=== PATIENT | female | born 1935 | race American Indian/Alaskan Native ===

== ENCOUNTER 2018-04-14 16:19 | Emergency (ER) | payer MEDICAID ==
[~2018-04-14] VITALS: Ht 149.9 cm; Wt 66.0 kg
[~2018-04-14 16:19] MED LIST: ASPI-1079 PO; LEVO25TA7 PO
[2018-04-14] MEDS ORDERED: HYDR25TA MT (16:50)
[2018-04-14] MEDS ORDERED: OMEP20TA2 MT (16:50)
[2018-04-14] MEDS ORDERED: [UNRECOGNIZED DRUG - OTHER] PO (16:52)
[2018-04-14] MEDS ORDERED: SODIUM CHLORIDE 0.9% 1,000 ML IV ONE (17:15)
[2018-04-14] MEDS ORDERED: ONDANSETRON HCL 4MG/2ML VIAL IV ONE (17:15)
[2018-04-14] MEDS ORDERED: ACETAMINOPHEN 325MG TABLET PO ONE ×2 (17:15→19:45)
[2018-04-14] MEDS ORDERED: MECLIZINE 25MG TABLET PO ONE (17:30)
[2018-04-14 17:34] LABS: CLARITY URINE CLEAR (CLEAR); COLOR URINE YELLOW (YELLOW); KETONES URINE NEGATIVE (NEGATIVE); LEUKOCYTE ESTERASE URINE TRACE (NEGATIVE); NITRITE URINE POSITIVE (NEGATIVE); OCCULT BLOOD URINE TRACE (NEGATIVE); PH URINE 6.5 (4.5-8.0); PROTEIN URINE NEGATIVE (NEGATIVE); SPECIFIC GRAVITY URINE 1.007 (1.005-1.030)
[2018-04-14 17:43] LABS: BASOPHILS % 0.4 % (0.0-2.0); HEMATOCRIT. 31.5 % (36.0-48.0); LYMPHOCYTES % 35.4 % (20.0-50.0); MEAN CORPUSCULAR VOLUME 97.5 fL (81.0-99.0); MEAN PLATELET VOLUME 6.3 fl (7.4-10.4); MONOCYTES % 13.4 % (2.0-8.0); NEUTROPHILS % 47.8 % (40.0-76.0); PLATELET 96 x1000/uL (130-400); RED BLOOD CELL COUNT 3.24 mill/uL (4.2-5.4); RED CELL DISTRIBUTION WIDTH 14.8 % (11.6-14.6)
[2018-04-14 17:46] LABS: CHLORIDE 97 mEq/L (98-107)
[2018-04-14] MEDS ORDERED: AMLODIPINE 10MG TABLET PO ONE (19:45)
[2018-04-14 20:45] VITALS: BP 174/80
== END 2018-04-14 21:07 | disposition home or self-care (01) ==
LOC: ER 16:19
DX: N39.0 Urinary tract infection, site not specified (principal); I10 Essential (primary) hypertension; R42 Dizziness and giddiness
CPT/HCPCS: 36415; 71045; 80053; 81003; 85025; 93005; 96361; 96374; 99285; J2405; J7030; Z7610; 96360; J8597

== ENCOUNTER 2018-12-08 10:15 | Emergency (ER) | payer MEDICARE, OTHER ==
[~2018-12-08] VITALS: Ht 152.4 cm; Wt 64.0 kg
[~2018-12-08 10:15] MED LIST changes: -ASPI-1079 PO; +HYDR25TA MT; +OMEP20TA2 MT; +[UNRECOGNIZED DRUG - OTHER] PO
[2018-12-08] MEDS ORDERED: LOSA100T14 PO (10:32)
[2018-12-08] MEDS ORDERED: AMLO2.5T45 PO (10:32)
[2018-12-08] MEDS ORDERED: ONDANSETRON HCL 4MG/2ML INJ IV STA (11:05)
[2018-12-08] MEDS ORDERED: SODIUM CHLORIDE 0.9% 500 ML IV ONE (11:15)
[2018-12-08 11:29] LABS: BASOPHILS % 0.6 % (0.0-2.0); EOSINOPHILS % 2.8 % (0.0-5.0); HEMATOCRIT. 35.9 % (36.0-48.0); HEMOGLOBIN. 12.3 g/dL (12.0-16.0); LYMPHOCYTES % 31.2 % (20.0-50.0); MEAN CORPUSCULAR VOLUME 99.2 fL (81.0-99.0); MEAN PLATELET VOLUME 6.5 fl (7.4-10.4); MONOCYTES % 9.8 % (2.0-8.0); NEUTROPHILS % 55.6 % (40.0-76.0); PLATELET 89 x1000/uL (130-400); RED BLOOD CELL COUNT 3.62 mill/uL (4.2-5.4); RED CELL DISTRIBUTION WIDTH 14.1 % (11.6-14.6)
[2018-12-08 11:34] LABS: CLARITY URINE CLEAR (CLEAR); COLOR URINE YELLOW (YELLOW); KETONES URINE NEGATIVE (NEGATIVE); LEUKOCYTE ESTERASE URINE 2+ (NEGATIVE); NITRITE URINE NEGATIVE (NEGATIVE); OCCULT BLOOD URINE TRACE (NEGATIVE); PH URINE 6.5 (4.5-8.0); PROTEIN URINE NEGATIVE (NEGATIVE); SPECIFIC GRAVITY URINE 1.005 (1.005-1.030)
[2018-12-08 11:35] LABS: CHLORIDE 103 mEq/L (98-107)
[2018-12-08 11:36] LABS: INR 1.1; PROTHROMBIN TIME 10.9 sec (9.1-11.1)
[2018-12-08] MEDS ORDERED: IOHEXOL-300 100 ML BOTTLE ONE (12:57)
[2018-12-08 13:30] VITALS: BP 180/65
== END 2018-12-08 14:03 | disposition home or self-care (01) ==
LOC: ER 10:15
DX: N39.0 Urinary tract infection, site not specified (principal); K74.60 Unspecified cirrhosis of liver; D69.6 Thrombocytopenia, unspecified; D72.819 Decreased white blood cell count, unspecified; I10 Essential (primary) hypertension; E03.9 Hypothyroidism, unspecified; D64.9 Anemia, unspecified; Z79.899 Other long term (current) drug therapy
CPT/HCPCS: 36415; 74177; 80053; 81003; 83690; 85025; 85610; 87077; 87086; 87186; 93005; 96361; 96374; 99284; J2405; J7040; Q9967

== ENCOUNTER 2019-03-18 12:18 | Inpatient (IN) | payer MEDICARE, OTHER ==
[~2019-03-18] VITALS: Ht 152.4 cm; Wt 44.9 kg
[~2019-03-18 12:18] MED LIST changes: +AMLO2.5T45 PO; +LOSA100T32 PO
[2019-03-18] MEDS ORDERED: ACETAMINOPHEN 325MG TABLET PO STA (14:30)
[2019-03-18] MEDS ORDERED: SODIUM CHLORIDE 0.9% 1000ML BAG (SEPSIS BOLUS) IV ONE (14:30)
[2019-03-18 15:16] LABS: HEMATOCRIT. 31.5 % (36.0-48.0); MEAN CORPUSCULAR HEMOGLOBIN 34.5 pg (28.0-32.0); MEAN CORPUSCULAR VOLUME 99.1 fL (81.0-99.0); MEAN PLATELET VOLUME 6.9 fl (7.4-10.4); PLATELET 56 x1000/uL (130-400); RED BLOOD CELL COUNT 3.18 mill/uL (4.2-5.4); RED CELL DISTRIBUTION WIDTH 14.2 % (11.6-14.6)
[2019-03-18 15:19] LABS: CHLORIDE 96 mEq/L (98-107)
[2019-03-18 15:39] LABS: INR 1.1; PROTHROMBIN TIME 11.2 sec (9.6-11.0)
[2019-03-18 15:46] LABS: PLATELET ESTIMATE DECREASED
[2019-03-18 16:20] LABS: CLARITY URINE CLEAR (CLEAR); COLOR URINE YELLOW (YELLOW); KETONES URINE NEGATIVE (NEGATIVE); LEUKOCYTE ESTERASE URINE 1+ (NEGATIVE); NITRITE URINE NEGATIVE (NEGATIVE); OCCULT BLOOD URINE 1+ (NEGATIVE); PH URINE 6.5 (4.5-8.0); PROTEIN URINE NEGATIVE (NEGATIVE); SPECIFIC GRAVITY URINE 1.011 (1.005-1.030)
[2019-03-18] MEDS ORDERED: CEFTRIAXONE 1 G PREMIX 50 ML IV ONE (16:45)
[2019-03-18] MEDS ORDERED: ONDANSETRON HCL 4MG/2ML INJ IV PRN (18:45)
[2019-03-18] MEDS ORDERED: CLONIDINE 0.1MG TABLET PO PRN (18:45)
[2019-03-18] MEDS ORDERED: ACETAMINOPHEN 650MG/20.3ML UDC PO PRN (18:45)
[2019-03-18 20:00] VITALS: BP 163/66
[2019-03-18] MEDS: SODIUM CHLORIDE 0.9% 1,000 ML IV SCH (21:15)
[2019-03-18] MEDS ORDERED: DOCUSATE SODIUM 250MG CAPSULE PO PRN (22:15)
[2019-03-18] MEDS ORDERED: POTASSIUM CHLORIDE 20MEQ TABLET SR PO NR (22:15)
[2019-03-19] VITALS: BP 115/45
[2019-03-19] MEDS ORDERED: LEVOFLOXACIN 500MG PREMIX 100 ML IV NR
[2019-03-19 04:00] VITALS: BP 118/49
[2019-03-19 07:04] LABS: HEMATOCRIT. 28.1 % (36.0-48.0); MEAN CORPUSCULAR HEMOGLOBIN 35.1 pg (28.0-32.0); MEAN CORPUSCULAR VOLUME 98.5 fL (81.0-99.0); MEAN PLATELET VOLUME 6.5 fl (7.4-10.4); RED BLOOD CELL COUNT 2.85 mill/uL (4.2-5.4); RED CELL DISTRIBUTION WIDTH 14.5 % (11.6-14.6)
[2019-03-19 07:06] LABS: CHLORIDE 106 mEq/L (98-107)
[2019-03-19 07:18] LABS: PLATELET 44 x1000/uL (130-400)
[2019-03-19 08:00] VITALS: BP 151/61
[2019-03-19] MEDS ORDERED: AMLODIPINE 10MG TABLET PO SCH (09:00)
[2019-03-19] MEDS: SODIUM CHLORIDE 0.9% 1,000 ML IV SCH (09:20)
[2019-03-19 12:00] VITALS: BP 130/54
[2019-03-19 12:03] LABS: PLATELET ESTIMATE MARKEDLY DECREASED
[2019-03-19 13:53] LABS: HEPATITIS B SURFACE ANTIGEN NEGATIVE
[2019-03-19 14:23] LABS: HEPATITIS A AB IGM NEGATIVE (NEGATIVE)
[2019-03-19] MEDS ORDERED: CALC-30 MT (15:43)
[2019-03-19] MEDS ORDERED: LOSA25TA26 MT (15:43)
[2019-03-19] MEDS ORDERED: AMLO2.5T2 PO (15:43)
[2019-03-19 16:00] VITALS: BP 144/60
[2019-03-19] MEDS ORDERED: CEFTRIAXONE 1 G PREMIX 50 ML IV SCH (17:00)
[2019-03-19] MEDS ORDERED: LEVOFLOXACIN 250MG PREMIX 50 ML IV SCH (23:00)
== END 2019-03-19 20:28 | disposition short-term general hospital (02) | DRG 463 ==
LOC: ER 12:18 → 6EST 16:51 → EDBEDREQ 17:25 → EDBEDREQSVC 17:25 → EDBEDREQ 17:26 → EDBEDREQTM 17:26 → ENRESERV 17:27
PROVIDERS: ADMIT Internal Medicine; ATTEND Internal Medicine
DX: N30.90 Cystitis, unspecified without hematuria (principal); J84.9 Interstitial pulmonary disease, unspecified; D61.818 Other pancytopenia; E87.8 Other disorders of electrolyte and fluid balance, not elsewhere classified; E87.1 Hypo-osmolality and hyponatremia; E44.1 Mild protein-calorie malnutrition; M48.54XA Collapsed vertebra, not elsewhere classified, thoracic region, initial encounter for fracture; E87.6 Hypokalemia; K74.60 Unspecified cirrhosis of liver; E78.00 Pure hypercholesterolemia, unspecified; I10 Essential (primary) hypertension; E78.5 Hyperlipidemia, unspecified; E03.9 Hypothyroidism, unspecified; Z88.0 Allergy status to penicillin
CPT/HCPCS: 36415; 71045; 74176; 80048; 83605; 86705; 86709; 86803; 87340; 87804; 93005; 93970; 97162; 99285; J0696; J1956; J7030

== ENCOUNTER 2019-07-01 14:11 | Emergency (ER) | payer MEDICARE, OTHER ==
[~2019-07-01] VITALS: Ht 152.4 cm; Wt 55.0 kg
[~2019-07-01 14:11] MED LIST changes: +AMLO2.5T2 PO; +CALC-30 MT; +LOSA25TA26 MT
[2019-07-01] MEDS ORDERED: LIDOCAINE 5% PATCH TOP STA (16:45)
[2019-07-01] MEDS ORDERED: ACETAMINOPHEN 325MG TABLET PO ONE (16:45)
[2019-07-01 21:59] VITALS: BP 181/61
== END 2019-07-01 22:01 | disposition home or self-care (01) ==
LOC: ER 14:11
DX: S22.089A Unspecified fracture of T11-T12 vertebra, initial encounter for closed fracture (principal); I10 Essential (primary) hypertension; E78.5 Hyperlipidemia, unspecified; E78.00 Pure hypercholesterolemia, unspecified; Z79.899 Other long term (current) drug therapy; Z88.0 Allergy status to penicillin; W18.2XXA Fall in (into) shower or empty bathtub, initial encounter; Y93.89 Activity, other specified; Y92.89 Other specified places as the place of occurrence of the external cause; Y99.8 Other external cause status
CPT/HCPCS: 72070; 72128; 99284

== ENCOUNTER 2021-12-12 13:49 | Emergency (ER) | payer MEDICARE, OTHER ==
[~2021-12-12] VITALS: Ht 152.4 cm; Wt 66.0 kg
[~2021-12-12 13:49] MED LIST changes: +CALC-1249 MT; -CALC-30 MT
[2021-12-12] MEDS ORDERED: SODIUM CHLORIDE 0.9% 1,000 ML IV ONE (18:45)
[2021-12-12] MEDS ORDERED: LOPERAMIDE HCL 2MG CAPSULE PO ONE (18:45)
[2021-12-12 19:33] LABS: BASOPHILS % 0.2 % (0.0-2.0); EOSINOPHILS % 1.5 % (0.0-5.0); HEMATOCRIT. 30.3 % (36.0-48.0); HEMOGLOBIN. 10.5 g/dL (12.0-16.0); LYMPHOCYTES % 17.9 % (20.0-50.0); MEAN CORPUSCULAR HEMOGLOBIN 34.5 pg (28.0-32.0); MEAN CORPUSCULAR VOLUME 99.6 fL (81.0-99.0); MEAN PLATELET VOLUME 7.6 fl (7.4-10.4); MONOCYTES % 12.3 % (2.0-8.0); NEUTROPHILS % 68.1 % (40.0-76.0); PLATELET 68 x1000/uL (130-400); RED BLOOD CELL COUNT 3.04 mill/uL (4.2-5.4); RED CELL DISTRIBUTION WIDTH 15.1 % (11.6-14.6)
[2021-12-12 19:43] LABS: CHLORIDE 112 mEq/L (98-107)
[2021-12-12 20:00] VITALS: BP 195/69
[2021-12-12] MEDS ORDERED: LOPE2CAP PO (20:31)
== END 2021-12-12 21:05 | disposition home or self-care (01) ==
LOC: ER 13:49
DX: R19.7 Diarrhea, unspecified (principal); I10 Essential (primary) hypertension; E78.00 Pure hypercholesterolemia, unspecified; E03.9 Hypothyroidism, unspecified; Z88.0 Allergy status to penicillin
CPT/HCPCS: 36415; 71045; 80053; 85025; 96360; 99284; J7030

== ENCOUNTER 2022-07-16 10:54 | Emergency (ER) | payer MEDICARE, OTHER ==
[~2022-07-16] VITALS: Ht 152.4 cm; Wt 59.0 kg
[~2022-07-16 10:54] MED LIST changes: +LOPE2CAP PO; -OMEP20TA2 MT; +OMEP20TA23 MT
[2022-07-16] MEDS ORDERED: ONDANSETRON HCL 4MG/2ML INJ IV STA (11:23)
[2022-07-16] MEDS ORDERED: HYDRALAZINE 20MG/ML VIAL IV ONE ×2 (11:30→21:00)
[2022-07-16 11:51] LABS: HEMATOCRIT. 29.9 % (36.0-48.0); HEMOGLOBIN. 10.4 g/dL (12.0-16.0); MEAN CORPUSCULAR HEMOGLOBIN 34.7 pg (28.0-32.0); MEAN CORPUSCULAR VOLUME 100.3 fL (81.0-99.0); MEAN PLATELET VOLUME 7.2 fl (7.4-10.4); PLATELET 58 x1000/uL (130-400); RED BLOOD CELL COUNT 2.99 mill/uL (4.2-5.4); RED CELL DISTRIBUTION WIDTH 15.4 % (11.6-14.6)
[2022-07-16 12:15] LABS: PLATELET ESTIMATE DECREASED
[2022-07-16 12:19] LABS: CHLORIDE 107 mEq/L (98-107)
[2022-07-16 20:46] VITALS: BP 172/61
== END 2022-07-16 21:31 | disposition short-term general hospital (02) ==
LOC: ER 10:54
DX: I16.1 Hypertensive emergency (principal); I10 Essential (primary) hypertension; E78.00 Pure hypercholesterolemia, unspecified; Z88.0 Allergy status to penicillin; Z79.899 Other long term (current) drug therapy; Z86.39 Personal history of other endocrine, nutritional and metabolic disease
CPT/HCPCS: 36415; 70450; 71045; 80053; 83880; 84484; 85025; 93005; 96374; 96375; 96376; 99291; J0360; J2405

== ENCOUNTER 2022-08-06 08:25 | Emergency (ER) | payer MEDICARE, OTHER ==
[~2022-08-06] VITALS: Ht 167.6 cm; Wt 77.0 kg
[2022-08-06 12:31] LABS: BASOPHILS % 0.3 % (0.0-2.0); EOSINOPHILS % 0.5 % (0.0-5.0); HEMATOCRIT. 33.4 % (36.0-48.0); HEMOGLOBIN. 11.4 g/dL (12.0-16.0); LYMPHOCYTES % 15.5 % (20.0-50.0); MEAN CORPUSCULAR HEMOGLOBIN 34.7 pg (28.0-32.0); MEAN CORPUSCULAR VOLUME 101.8 fL (81.0-99.0); MEAN PLATELET VOLUME 7.4 fl (7.4-10.4); MONOCYTES % 6.2 % (2.0-8.0); NEUTROPHILS % 77.5 % (40.0-76.0); PLATELET 71 x1000/uL (130-400); RED BLOOD CELL COUNT 3.28 mill/uL (4.2-5.4); RED CELL DISTRIBUTION WIDTH 15.4 % (11.6-14.6)
[2022-08-06 12:59] LABS: CLARITY URINE CLEAR (CLEAR); COLOR URINE YELLOW (YELLOW); KETONES URINE TRACE (NEGATIVE); LEUKOCYTE ESTERASE URINE 1+ (NEGATIVE); NITRITE URINE POSITIVE (NEGATIVE); OCCULT BLOOD URINE 1+ (NEGATIVE); PH URINE 6.5 (4.5-8.0); PROTEIN URINE 1+ (NEGATIVE); SPECIFIC GRAVITY URINE 1.008 (1.005-1.030)
[2022-08-06 13:37] LABS: CHLORIDE 104 mEq/L (98-107)
[2022-08-06] MEDS ORDERED: CEFTRIAXONE 1 G PREMIX 50 ML IV ONE (14:45)
[2022-08-06] MEDS ORDERED: NITR100C MT (17:27)
[2022-08-06] MEDS ORDERED: AMLODIPINE 5MG TABLET PO ONE (17:30)
[2022-08-06 18:05] VITALS: BP 176/71
== END 2022-08-06 18:07 | disposition home or self-care (01) ==
LOC: ER 08:25
DX: N39.0 Urinary tract infection, site not specified (principal); R42 Dizziness and giddiness; R11.10 Vomiting, unspecified; I10 Essential (primary) hypertension; Z79.899 Other long term (current) drug therapy
CPT/HCPCS: 36415; 71045; 80053; 81003; 83690; 84484; 85025; 93005; 96365; 99285; J0696

== ENCOUNTER 2022-12-11 12:25 | Emergency (ER) | payer MEDICARE, OTHER ==
[~2022-12-11] VITALS: Ht 160 cm; Wt 62.0 kg
[~2022-12-11 12:25] MED LIST changes: +NITR100C MT
[2022-12-11 17:21] VITALS: BP 142/75
== END 2022-12-11 17:30 | disposition home or self-care (01) ==
LOC: ER 14:23
DX: M25.511 Pain in right shoulder (principal); M85.80 Other specified disorders of bone density and structure, unspecified site; I10 Essential (primary) hypertension; E03.9 Hypothyroidism, unspecified; Z88.0 Allergy status to penicillin
CPT/HCPCS: 73030; 73060; 99284; A4565

== ENCOUNTER 2022-12-28 13:43 | Emergency (ER) | payer MEDICARE, OTHER ==
[~2022-12-28] VITALS: Ht 152.4 cm; Wt 60.0 kg
[2022-12-28] MEDS ORDERED: KETOROLAC 30MG/ML VIAL IV STA (18:43)
[2022-12-28 19:26] LABS: BASOPHILS % 0.2 % (0.0-2.0); EOSINOPHILS % 0.4 % (0.0-5.0); HEMATOCRIT. 25.8 % (36.0-48.0); HEMOGLOBIN. 8.8 g/dL (12.0-16.0); LYMPHOCYTES % 10.1 % (20.0-50.0); MEAN CORPUSCULAR HEMOGLOBIN 35.1 pg (28.0-32.0); MEAN CORPUSCULAR VOLUME 102.5 fL (81.0-99.0); MEAN PLATELET VOLUME 7.2 fl (7.4-10.4); NEUTROPHILS % 77.3 % (40.0-76.0); PLATELET 171 x1000/uL (130-400); RED BLOOD CELL COUNT 2.52 mill/uL (4.2-5.4); RED CELL DISTRIBUTION WIDTH 16.1 % (11.6-14.6)
[2022-12-28 19:34] LABS: INR 1.2; PARTIAL THROMBOPLASTIN TIME 26.5 sec (23.4-31.0); PROTHROMBIN TIME 12.3 sec (9.6-11.0)
[2022-12-28 19:39] LABS: CHLORIDE 102 mEq/L (98-107)
[2022-12-28] MEDS ORDERED: KETOROLAC 30MG/ML VIAL IV NR (20:30)
[2022-12-29 01:42] VITALS: BP 106/49
== END 2022-12-29 04:02 | disposition short-term general hospital (02) ==
LOC: ER 13:43
DX: L03.113 Cellulitis of right upper limb (principal); I10 Essential (primary) hypertension; Z88.0 Allergy status to penicillin; Z86.39 Personal history of other endocrine, nutritional and metabolic disease
CPT/HCPCS: 36415; 73030; 73200; 80053; 83605; 85025; 85610; 85651; 85730; 86850; 86900; 86901; 87040; 87077; 87186; 96374; 99291; J1885; Z7610

== ENCOUNTER 2023-01-15 05:56 | Emergency (ER) | payer MEDICARE, OTHER ==
[~2023-01-15] VITALS: Ht 165.1 cm; Wt 64.0 kg
[2023-01-15] MEDS ORDERED: OXYMETAZOLINE HCL NASAL SPRAY 15ML BOTHNSTRLS PRN (06:30)
[2023-01-15 08:23] LABS: BASOPHILS % 0.5 % (0.0-2.0); EOSINOPHILS % 3.6 % (0.0-5.0); HEMATOCRIT. 22.4 % (36.0-48.0); HEMOGLOBIN. 7.5 g/dL (12.0-16.0); LYMPHOCYTES % 42.3 % (20.0-50.0); MEAN CORPUSCULAR HEMOGLOBIN 33.8 pg (28.0-32.0); MEAN CORPUSCULAR VOLUME 100.8 fL (81.0-99.0); MEAN PLATELET VOLUME 7.3 fl (7.4-10.4); NEUTROPHILS % 42.6 % (40.0-76.0); PLATELET 86 x1000/uL (130-400); RED BLOOD CELL COUNT 2.22 mill/uL (4.2-5.4); RED CELL DISTRIBUTION WIDTH 20.7 % (11.6-14.6)
[2023-01-15 08:29] LABS: INR 1.2; PARTIAL THROMBOPLASTIN TIME 28.2 sec (23.4-31.0); PROTHROMBIN TIME 12.9 sec (9.6-11.0)
[2023-01-15] MEDS ORDERED: TRANEXAMIC ACID 1,000 MG/10 ML IV ONE (10:00)
[2023-01-15] MEDS ORDERED: ONDANSETRON HCL 4MG/2ML INJ IV STA (10:27)
[2023-01-15] MEDS ORDERED: SODIUM CHLORIDE 0.9% 1,000 ML IV ONE (10:30)
[2023-01-15 11:41] LABS: CHLORIDE 110 mEq/L (98-107)
[2023-01-15] MEDS ORDERED: CLIN-194 MT (11:59)
[2023-01-15 12:00] VITALS: BP 132/74
== END 2023-01-16 01:58 | disposition home or self-care (01) ==
LOC: ER 05:56
DX: D64.9 Anemia, unspecified (principal); R04.0 Epistaxis; I10 Essential (primary) hypertension; Z88.0 Allergy status to penicillin
CPT/HCPCS: 30901; 36415; 71045; 80053; 83690; 85025; 85610; 85730; 86850; 86900; 86901; 96374; 96375; 99284; J2405; J7030

== ENCOUNTER 2023-01-28 11:32 | Emergency (ER) | payer MEDICARE, OTHER ==
[~2023-01-28] VITALS: Ht 167.6 cm; Wt 77.0 kg
[~2023-01-28 11:32] MED LIST changes: +CLIN-194 MT
[2023-01-28 12:53] LABS: BASOPHILS % 0.5 % (0.0-2.0); EOSINOPHILS % 7.4 % (0.0-5.0); HEMATOCRIT. 21.9 % (36.0-48.0); HEMOGLOBIN. 7.1 g/dL (12.0-16.0); LYMPHOCYTES % 44.7 % (20.0-50.0); MEAN CORPUSCULAR HEMOGLOBIN 34.1 pg (28.0-32.0); MEAN CORPUSCULAR VOLUME 104.7 fL (81.0-99.0); MEAN PLATELET VOLUME 5.7 fl (7.4-10.4); MONOCYTES % 11.3 % (2.0-8.0); NEUTROPHILS % 36.1 % (40.0-76.0); PLATELET 76 x1000/uL (130-400)
[2023-01-28 13:01] LABS: CHLORIDE 108 mEq/L (98-107)
[2023-01-28 13:05] LABS: INR 1.2; PARTIAL THROMBOPLASTIN TIME 26.2 sec (23.4-31.0); PROTHROMBIN TIME 12.8 sec (9.6-11.0)
[2023-01-29 00:13] VITALS: BP 126/51
== END 2023-01-29 01:39 | disposition short-term general hospital (02) ==
LOC: ER 11:32
DX: R07.89 Other chest pain (principal); E78.00 Pure hypercholesterolemia, unspecified; I10 Essential (primary) hypertension; Z79.899 Other long term (current) drug therapy
CPT/HCPCS: 36415; 71045; 80053; 83880; 84484; 85025; 93005; 99285